=== PATIENT | female | born 1960 | race Caucasian/White ===

== ENCOUNTER 2022-05-21 18:14 | Emergency (ER) | payer OTHER ==
[~2022-05-21] VITALS: Ht 157.5 cm; Wt 61.2 kg
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
[2022-05-21] MEDS ORDERED: KETOROLAC TROMETHAMINE INJ 30 MG/ML VIAL ONE (19:57)
[2022-05-21] MEDS ORDERED: METHOCARBAMOL (500MG) 500 MG TABLET ONE (19:57)
[2022-05-21] MEDS ORDERED: KETOROLAC TROMETHAMINE INJ 60 MG/2 ML VIAL IM ONE (20:00)
[2022-05-21] MEDS ORDERED: LIDOCAINE 5% (PATCH) 1 EA PATCH TP ONE ×2 (20:00→20:18)
[2022-05-21] MEDS ORDERED: METHOCARBAMOL (750MG) 750 MG TABLET PO SCH (20:00)
--- NOTE | 2022-05-21 20:26 | NUR ---
PT TAKEN TO CT VIA [facility]
[2022-05-21] MEDS ORDERED: METH-647 PO (20:38)
[2022-05-21] MEDS ORDERED: LIDO30AD10 TP (20:38)
[2022-05-21] MEDS ORDERED: NAPR-1164 PO (20:38)
--- NOTE | 2022-05-21 20:54 | NUR ---
INCENTIVE SPIROMETRY TEACHING PROVIDED TO PATIENT. PT VERBALIZED UNDERSTANDING AND DEMONSTRTATED PROPER USE OF SPIROMETER TO RN.
--- NOTE | 2022-05-21 21:00 | NUR ---
Patient discharged to home in stable condition. Written and verbal after care instructions given. Patient verbalizes understanding of instruction.
[2022-05-21 21:01] VITALS: BP 122/79
== END 2022-05-21 21:02 | disposition home or self-care (01) ==
LOC: ER 18:16
DX: S39.012A Strain of muscle, fascia and tendon of lower back, initial encounter (principal); S20.212A Contusion of left front wall of thorax, initial encounter; V49.88XA Car occupant (driver) (passenger) injured in other specified transport accidents, initial encounter; W22.19XA Striking against or struck by other automobile airbag, initial encounter; Y93.89 Activity, other specified; Y92.89 Other specified places as the place of occurrence of the external cause; Y99.8 Other external cause status
CPT/HCPCS: 99283; 71045; 96372; J1885